=== PATIENT | male | born 1960 | race Caucasian/White ===

== ENCOUNTER 2020-05-01 20:38 | Emergency (ER) | payer MEDICARE ==
[~2020-05-01] VITALS: Ht 182.9 cm; Wt 145.4 kg
[2020-05-01 21:16] LABS: GLUCOSE,POINT OF CARE 188 MG/DL (70-110)
[2020-05-01] MEDS ORDERED: HYDROCODONE/ACETAMINOPHEN 5-325 MG TABLET PO ONE (21:45)
[2020-05-01] MEDS ORDERED: LIDOCAINE 1% 10 ML VIAL ID ONE (21:45)
[2020-05-01] MEDS ORDERED: PERTUSS(ACELL),DIPH,TET VAC/PF 0.5 ML VIAL IM ONE (21:45)
[2020-05-01] MEDS ORDERED: SODIUM CHLORIDE 0.9% 250 ML IRRIG SOLUTION BOTTLE IRRIG ONE (21:45)
[2020-05-01] MEDS ORDERED: POVIDONE-IODINE 10% 120 ML SOLUTION TP ONE (21:45)
[2020-05-02 02:15] VITALS: BP 132/82
== END 2020-05-02 02:29 | disposition home or self-care (01) ==
LOC: EMS 20:38
DX: S51.811A Laceration without foreign body of right forearm, initial encounter (principal); S61.411A Laceration without foreign body of right hand, initial encounter; E11.9 Type 2 diabetes mellitus without complications; E78.00 Pure hypercholesterolemia, unspecified; I10 Essential (primary) hypertension; Z88.0 Allergy status to penicillin; W54.1XXA Struck by dog, initial encounter; Y93.89 Activity, other specified; Y92.89 Other specified places as the place of occurrence of the external cause; Y99.8 Other external cause status
CPT/HCPCS: 12002; 73090; 73130; 82962; 90471; 90715; 99284; J3490

== ENCOUNTER 2021-03-23 21:30 | Emergency (ER) | payer MEDICARE, OTHER ==
[~2021-03-23] VITALS: Ht 182.9 cm; Wt 156.8 kg
[2021-03-23] MEDS ORDERED: INDO50CA97 PO (22:07)
[2021-03-23] MEDS ORDERED: CHOL200016 PO (22:07)
[2021-03-23] MEDS ORDERED: SPIR-37 PO (22:07)
[2021-03-23] MEDS ORDERED: CARB15DR54 OU (22:07)
[2021-03-23] MEDS ORDERED: FLUT16H NASAL (22:07)
[2021-03-23] MEDS ORDERED: CLON0.1T2 PO (22:07)
[2021-03-23] MEDS ORDERED: DULO60CA98 PO (22:07)
[2021-03-23] MEDS ORDERED: PRAV40TA4 PO (22:07)
[2021-03-23] MEDS ORDERED: LOSA50TA37 PO (22:07)
[2021-03-23] MEDS ORDERED: ALBU8HFA IH (22:07)
[2021-03-23] MEDS ORDERED: OMEG-135 PO (22:07)
[2021-03-23] MEDS ORDERED: FURO40 PO (22:07)
[2021-03-23] MEDS ORDERED: TOPI25 PO (22:07)
[2021-03-23] MEDS ORDERED: LIDO700A15 TP (22:07)
[2021-03-23] MEDS ORDERED: ASPI-797 PO (22:07)
[2021-03-23] MEDS ORDERED: GLIP10 PO (22:07)
[2021-03-23] MEDS ORDERED: ASPI-1450 PO (22:07)
[2021-03-23] MEDS ORDERED: AMMO225L14 TP (22:07)
[2021-03-23] MEDS ORDERED: MOME0.242 PO (22:07)
[2021-03-23] MEDS ORDERED: METO50 PO (22:07)
[2021-03-23] MEDS ORDERED: PANT-31 PO (22:07)
[2021-03-23] MEDS ORDERED: METF-1211 PO (22:07)
[2021-03-23] MEDS ORDERED: CLOT15CR29 TP (22:07)
[2021-03-23] MEDS ORDERED: SILD20TA PO (22:07)
[2021-03-23] MEDS ORDERED: MULT-248 PO (22:07)
[2021-03-23] MEDS ORDERED: EMPA10TA PO (22:07)
[2021-03-23 22:09] LABS: GLUCOSE,POINT OF CARE 188 MG/DL (70-110)
[2021-03-23 22:54] LABS: BASOPHILS % (AUTO) 0.5 % (0.0-2.0); EOSINOPHILS % (AUTO) 6.4 % (1.0-6.0); HEMATOCRIT 36.7 % (41-53); HEMOGLOBIN 12.4 g/dL (13.5-17.5); LYMPHOCYTES # (AUTO) 2.6 K/uL (1.0-4.8); LYMPHOCYTES % (AUTO) 26.9 % (22.0-44.0); MEAN CORPUSCULAR HEMOGLOBIN 29.6 pg (26.0-34.0); MEAN CORPUSCULAR HGB CONC 33.7 G/dL (31.0-37.0); MEAN CORPUSCULAR VOLUME 88 fL (80-100); MONOCYTES # (AUTO) 0.9 K/uL (0.1-1.0); MONOCYTES % (AUTO) 9.2 % (2.0-9.0); NEUTROPHILS # (AUTO) 5.6 K/uL (1.8-7.7); PLATELET COUNT (AUTO) 294 K/uL (150-450); RED BLOOD CELL COUNT(AUTO) 4.18 MIL/uL (4.50-5.90); RED CELL DISTRIBUTION WIDTH 14.2 % (11.5-14.5)
[2021-03-23 23:07] LABS: ANION GAP 8 mmol/L (8-16); CARBON DIOXIDE 29 mmol/L (22-29); CHLORIDE 101 mmol/L (98-107); CREATININE 1.78 mg/dL (0.60-1.30); GLOMERULAR FILTR. RATE CALC 39 mL/min (>60); GLUCOSE,RANDOM 193 mg/dL (70-110); POTASSIUM 4.1 mmol/L (3.5-5.1); SODIUM SERUM 138 mmol/L (136-145); UREA NITROGEN, BLOOD 31 mg/dL (7-18)
[2021-03-23 23:13] LABS: ALANINE AMINOTRANSFERASE 60 U/L (12-78); ALBUMIN 3.7 g/dL (3.4-5.0); ALKALINE PHOSPHATASE 51 U/L (46-116); ASPARTATE AMINOTRANSFERASE 26 U/L (15-37); BILIRUBIN,TOTAL 0.3 mg/dL (0.1-1.0); LIPASE 249 U/L (73-393); TOTAL PROTEIN, SERUM 7.7 g/dL (6.4-8.2)
[2021-03-23 23:18] LABS: LACTIC ACID 2.3 mmol/L (0.4-2.0)
[2021-03-24 00:21] VITALS: BP 132/86
== END 2021-03-24 00:22 | disposition home or self-care (01) ==
LOC: EMS 21:35
DX: E87.2 Acidosis (principal); R25.2 Cramp and spasm; T38.3X5A Adverse effect of insulin and oral hypoglycemic [antidiabetic] drugs, initial encounter; X58.XXXA Exposure to other specified factors, initial encounter; E11.9 Type 2 diabetes mellitus without complications; E78.00 Pure hypercholesterolemia, unspecified; I10 Essential (primary) hypertension
CPT/HCPCS: 71046; 80053; 82962; 83605; 83690; 84484; 85025; 93005; 99285; 36415-L1; 36415-TC